=== PATIENT | male | born 1990 | race Hispanic/Latino ===

== ENCOUNTER 2024-11-21 07:09 | Day surgery (SDC) | payer OTHER ==
[2024-11-17 09:56] LABS: BASOPHILS # (AUTO) 0.07 K/uL (0.00-0.20); BASOPHILS % (AUTO) 0.9 % (0.0-5.0); EOSINOPHILS # (AUTO) 0.38 K/uL (0.00-0.70); EOSINOPHILS % (AUTO) 5.1 % (0.0-8.0); HEMATOCRIT 42.9 % (42-54); IMMATURE GRANULOCYTE ABSOLUTE 0.09 K/uL (0-1); LYMPHOCYTES # (AUTO) 2.9 K/uL (1.0-4.8); LYMPHOCYTES % (AUTO) 39.1 % (21.0-51.0); MEAN CORPUSCULAR HEMOGLOBIN 28.5 pg (27.0-33.0); MEAN CORPUSCULAR HGB CONC 33.3 g/dL (32.0-36.0); MEAN CORPUSCULAR VOLUME 85.6 fL (79-99); MONOCYTES # (AUTO) 0.6 K/uL (0.1-1.0); MONOCYTES % (AUTO) 7.7 % (3.0-13.0); NEUTROPHILS # (AUTO) 3.4 K/uL (1.8-7.7); PLATELET COUNT (AUTO) 256 K/uL (130-400); RED BLOOD CELL COUNT(AUTO) 5.01 MIL/uL (4.50-6.20); RED CELL DISTRIBUTION WIDTH 13.2 % (11.0-15.5); WHITE BLOOD COUNT (AUTO) 7.5 K/uL (4.8-10.8)
[2024-11-17 10:02] LABS: CREATININE 0.8 mg/dL (0.5-1.3); POTASSIUM 4.1 mmol/L (3.5-5.1)
[2024-11-17 10:06] LABS: INR 0.97 (0.85-1.15); PROTHROMBIN TIME 10.3 SEC (9.6-11.6)
[2024-11-17 10:35] VITALS: BP 117/70; PULSE 62; RESP 18; TEMP 98.2
[~2024-11-21] VITALS: Ht 165.1 cm; Wt 80.6 kg
[2024-11-21] VITALS (16 sets, daily range): BP systolic 108–140; BP diastolic 64–75; PULSE 61–90; RESP 14–19; TEMP 97–97.7
[2024-11-21] MEDS ORDERED: BUPIvacaine/PF 0.25% 30ML VIAL IJ ONE (07:29)
[2024-11-21] MEDS ORDERED: FAMOTIDINE 20MG VIAL IV ONE ×2 (08:19→10:52)
[2024-11-21] MEDS: ceFAZolin SODIUM 2 GM VIAL ONE (08:22)
[2024-11-21] MEDS: LACTATED RINGERS 1000ML 1,000 ML IV ONE (08:22)
[2024-11-21] MEDS ORDERED: SUGAMMADEX SODIUM 200 MG/2 ML VIAL IV ONE (10:24)
[2024-11-21] MEDS ORDERED: dexaMETHasone SOD PHOSPHATE 10MG/ML 1ML VIAL ONE (10:46)
[2024-11-21] MEDS ORDERED: LIDOCAINE PF 100MG/5ML (2%) SYRINGE 5ML ONE (10:46)
[2024-11-21] MEDS ORDERED: GLYCOPYRROLATE 0.2 MG/ML 5 ML VIAL ONE (10:47)
[2024-11-21] MEDS ORDERED: ondanSETRON 4MG INJ ONE (10:47)
[2024-11-21] MEDS ORDERED: rocuRONium bROMide 10MG/1ML 5ML VL ONE (10:47)
[2024-11-21] MEDS ORDERED: SUCCINYLCHOLINE CHLORIDE 20 MG/ML 10 ML VIAL ONE (10:47)
[2024-11-21] MEDS ORDERED: proPOFol 10 MG/ML 20ML VIAL IV ONE (10:47)
[2024-11-21] MEDS ORDERED: NEOSTIGMINE METHYLSULFATE 1MG/ML IV ONE (10:47)
[2024-11-21] MEDS ORDERED: FENTanyl CITRate PF 50 MCG/1 ML 2ML VIAL ONE ×2 (10:48→11:21)
[2024-11-21] MEDS ORDERED: MIDAZOLAM HCL 1 MG/ML 2ML VIAL ONE (10:48)
[2024-11-21] MEDS ORDERED: ROPivacaine 0.5% 5MG/ML 30ML ONE (10:54)
--- NOTE | 2024-11-21 14:01 | NUR ---
BOTH PT AND GIVEN VERBAL AND WRITTEN DISCHARGE INSTRUCTIONS IV REMOVED SITE ASYMPTOMATIC. ALL QUESTIONS ANSWERED IN BOTH PT AND WIFES [place] L[employer]AGE "[place]". IV REMOVED SITE ASYMPTOMATIC. PT TAKEN OUT VIA WHEELCHAIR DRIVING
--- NOTE | 2024-12-05 12:43 | OP ---
Operative Note: DATE OF PROCEDURE: 11/22/24 SURGEON: LIANET FAIR MD FEEDER ASSOCIATE: [] ANESTHESIA: [] General ANESTHESIOLOGIST/TRANSFORMER MOLDER: [] PREOPERATIVE DIAGNOSIS: [] Right inguinal hernia POSTOPERATIVE DIAGNOSIS: [] The same SYNOPSIS: [] PROCEDURE: [] Robotic right inguinal hernia repair ESTIMATED BLOOD LOSS: [] None INDICATIONS: [] DESCRIPTION OF PROCEDURE: [] With the patient prepped in usual fashion and a Padilla catheter placed we inserted the Veress needle in the left upper quadrant abdomen insufflated. Supraumbilical incision was created and a millimeter da Xiang trocar was insert ed. Under direct vision I remove the needle and I placed 2 da Xiang trochars 1 in each the side of the abdomen. Then we placed the patient in Trendelenburg and I docked the robot. I went to the console and observe a right inguinal hernia. This seems to be of the indirect type. Using cautery I scored the peritoneum and I brought him down bluntly. I exposed the Jean-Pierre's ligament and the indirect area I reduce a large hernia sac preserving the spermatic cords and visualizing the vas deferens and spermatic cords. The hernia was reduced without any problems. After observing the myopectineal line and the Jean-Pierre's ligament I placed a 3 D MAX MId mid mesh on the right side. This was a large one. I placed it over the Jean-Pierre's ligament covering couple centimeters below and the indirect space. The sac with the lipoma was placed over the mesh. I then closed the peritoneum with a 2 oh V-Loc. No anchoring of the mesh was necessary. We did a closure continues and dropped the pressure to 8 cm. After this was done I remove the needle and I remove all the trochars under direct vision. The skin was closed with 4-0 Monocryl and Dermabond. We placed 20 cc LIANET FAIR MD Dec 05, 2024 12:43
== END 2024-11-21 14:04 | disposition home or self-care (01) ==
LOC: DAH 07:09
PROVIDERS: ATTEND Surgery
DX: K40.90 Unilateral inguinal hernia, without obstruction or gangrene, not specified as recurrent (principal); E78.5 Hyperlipidemia, unspecified; Z79.01 Long term (current) use of anticoagulants; Z79.899 Other long term (current) drug therapy
CPT/HCPCS: 49650; 64486; S2900; 36415; 80048; 85025; 85610; 85730; A4344; A4450; J0330; J1100; J2003; J2250; J2405; J2704; J2710; J2795; J3010; J3490; J7030; J7120; A4215; A4221; A4222; A4223; A4600; A4663; A6260; C1781; J0665; J0690